=== PATIENT | male | born 1975 ===

== ENCOUNTER 2023-03-13 05:15 | Day surgery (SDC) | payer OTHER ==
[~2023-03-13] VITALS: Ht 162.6 cm; Wt 74.8 kg
[~2023-03-13 05:15] MED LIST: LIPITOR20 MG PO; LIPOCHOL PLUS0.5 MG PO
== END 2023-03-13 13:40 | disposition home or self-care (01) ==
LOC: CIR.AMB 05:15
PROVIDERS: ATTEND Orthopaedic Surgery Hand Surgery
DX: D17.22 Benign lipomatous neoplasm of skin and subcutaneous tissue of left arm (principal); R22.32 Localized swelling, mass and lump, left upper limb; E78.5 Hyperlipidemia, unspecified; R73.03 Prediabetes